=== PATIENT | male | born 1965 | race Caucasian/White ===

== ENCOUNTER 2020-02-24 01:39 | Inpatient (IN) ==
[2020-02-24 01:52] VITALS: BMI 29.0
--- NOTE | 2020-02-24 02:05 | DR.GENAD ---
HPI - PCP Primary Care Physician: RADHA - Complaint/Symptoms Chief Complaint Doctors Comments: Patient is compaining of vomiting for the past nine days and being unable to keep anything down during this period with dry mouth, chest pain and left sided chest pain with neck pain and headache initially but is not having neck or headache presently. States he is just "sick and weak" and can't keep anything down and is having mainly stomach cramping and sore throat. States he has been urinating a lot but denies dysuria or hematuria. His bowels usually moves about every 2-3 days but has been slow recently. States he has been battling this for about two weeks and plan to go see his doctor Tuesday but could not wait any longer because he thought he was dehydrated and can't keeep anything down. States he has been drinking water but the water taste funny. He denies tobacco, acohol or drug usage. States he is unsure if he has been around anyone with the COVID virus. States he woke up with chills and feeling weak. He denies cold or cough. Chief Complaint:: PATIENT STATES SINCE TUESDAY HE HAS HAD DRY MOUTH, BODY ACHES, THROWING UP, CHEST DISCOMFORT, AND THE TOP OF HEAD HURTING WITH NO RELIEF, PT IN NO DISTRESS IN TRIAGE. Self Treatment fo Chief Complaint: HOME MEDICATIONS - COVID-19 Coronavirus risk:travel/contact w/high risk person: Yes Has patient experienced Coronavirus symptoms: Yes Coronavirus symptoms experienced: Fever - Nurses notes reviewed Nurses Notes Review: Yes - Source History Provided: Patient - Mode of Arrival Mode of Arrival: Ambulatory - Timing Onset of Chief Complaint: 02/17/20 Came on: Gradually - Duration Duration: Constant How lon Duration: Days - Location Location: chest discomfort. - Severity Severity: Moderate - Modifying Factors Worsens:: nothing Improves:: nothing PMH - PMH Past Medical History: Yes Past Medical History: Hypertension Past Surgical History: Yes Surgical History: Ortho Surgery Past Surgical History Comment: RIGHT ARM. LEFT HAND (FINGERS). NECK - Family History History of Family Medical Conditions: No - Social History Does patient currently use any type of tobacco product: No Have you used tobacco products in the last 12 months: No Type of Tobacco Use: None Does any household member use tobacco: No Alcohol Use: None Do you use any recreational Drugs:: No Lives With: Family Lives Where: Home - infectious screening In the last 2 months have you had wt loss of >10#?: NO Have you had fever, night sweats or hemotysis?: No Have you traveled outside the country in the last 6 months?: No Isolation: Standard ROS - Review of Systems Constitutional: No Symptoms Reported, Chills, Fever, Weakness, Loss of Appetite Eyes: No Symptoms Reported. negative: See HPI, Eye Pain, Blurred Vision, Tearing, Discharge, Photophobia, Diplopia, Other ENTM: No Symptoms Reported Respiratoy: No Symptoms Reported. negative: See HPI, Productive Cough, Non- Productive Cough, Moist Cough, Dry Cough, Hacking Cough, Barking Cough, Brassy Cough, Orthopnea, Short of Breath, Stridor, Wheezing, Hemoptysis, Other Cardiovascular: No Symptoms Reported, Chest Pain. negative: See HPI, Edema, Palpitations, Syncope, Cyanosis, Skin Mottling, Other Gastrointestinal/Abdominal: No Symptoms Reported, Abdominal Pain, Constipation, Nausea, Vomiting, Food Intolerance Genitourinary: No Symptoms Reported, Frequency Neurological: No Symptoms Reported, Weakness. negative: See HPI, Anxiety, Depressed, Emotional Problems, Headache, Numbness, Paresthesia, Pre-existing Deficit, Seizure, Tingling, Tremors, Dizziness, Problems Walking, Speech Problem, Other Musculoskeletal: No Symptoms Reported Integumentary: No Symptoms Reported. negative: See HPI, Change in Color, Change in Hair/Nails, Dryness, Lesions, Lumps, Rash, Itching, Wound, Bruises, Juandice, Other Hematologic/Lymphatic: No Symptoms Reported Endocrine: No Symptoms Reported, Increased Thirst, Increased Urine, Decreased Appetite. negative: See HPI, Excessive Sweating, Flushing, Intolerance to Cold, Intolerance to Heat, Increased Hunger, Unexplained Weight Gain, Unexplained Weight Loss, Failure to Thrive, Other Psychiatric: No Symptoms Reported. negative: See HPI, Anxiety, Depression, Hallucinations, Excessive crying, Suicidal, Other PE - General Limitations: No Limitations General Appearance: Alert, In Distress (moderate) - Head Head Exam: Normal Inspection, Atraumatic, Normocephalic - Eyes Eye exam: Normal Appearance, PERRL, EOMI. negative: Scleral Icterus, Conjunctival Injection, Nystagmus, Miosis, Mydrasis, Periorbital Swelling, P eriorbital Tenderness, Other - ENT ENT Exam: Normal Exam, Normal Oropharynx, Normal External Ear Exam, Mucous Membranes Moist, TM's Normal Bilaterally External Ear Exam: Normal External Inspection TM/Canal Exam: Bilateral Normal Nose Exam: Normal Nose Exam Mouth Exam: Normal Inspection. negative: Drooling, Trismus, Lip Swelling, Tongue Elevation, Tongue Swelling, Laceration, Other Throat Exam: Normal Inspection, Tonsillar Erythema. negative: Tonsillomegaly, Tonsillar Exudate, R Peritonsillar Mass, L Peritonsillar Mass, Muffled Voice, Other - Neck Neck Exam: Normal Inspection, Full ROM, Trachea Midline. negative: Tenderness, Meningismus, Lymphadenopathy, Thyromegaly, Other - Chest Chest Inspection: Normal Inspection, Symmetric Chest Wall Rise. negative: Tenderness, Rash, Abscess, Other - Respiratory Respiratory Exam: Normal Lung Sounds Bilat. negative: Accessory Muscle Use, Chest Wall Tenderness, Prolonged Expiratory Phase, Respiratory Distress, Stridor, Other Respiratory Exam: Bilateral Clear to Auscultation - Cardiovascular Cardiovascular Exam: Regular Rate, Normal Rhythm, Normal Heart Sounds. negative: Bradycardia, Tachycardia, Irregular Rhythm, Systolic Murmur, Diastolic Murmur, Rubs, Gallop, Clicks, JVD, +S1, +S2, +S3, +S4, Other - Abdominal Exam Abdominal Exam: Normal Inspection, Normal Bowel Sounds, Soft, Distention, Tenderness, Guarding, Hyperactive Bowel Sounds. negative: Rebound, Rigidity, Dimnished Bowel Sounds, Hypoactive Bowel Sounds, Organomegaly, Trauma, Incision, Ascites, Mass, Bruit, Pulsatile Mass, Hernia, Other Abdominal Tenderness: Epigastrium, Suprapubic, Mild. negative: RUQ, RLQ, LUQ, LLQ, Diffuse, Moderate, Severe, Other - Extremities Extremities Exam: Normal Inspection, Full ROM, Normal Capillary Refill. negative: Tenderness, Edema, Joint Swelling, Calf Tenderness, Other - Back Back Exam: Normal Inspection, Full ROM. negative: Tenderness, (R) CVA Tenderness, (L) CVA Tenderness, Muscle Spasm, Paraspinal Tenderness, Vertebral Tenderness, Rashes, (R) Sciatic Notch Tenderness, (L) Sciatic Notch Tendern, (R) Straight Leg Raise, (L) Straight Leg Raise, Other - Neurologic Neurological Exam: Alert, Oriented X3, CN II-XII Intact, Reflexes Normal. negative: Normal Gait (not tested) - Psychiatric Psychiatric Exam: Normal Affect, Normal Mood. negative: Depressed, Agitated, Anxious, Flat Affect, Manic, Homicidal Ideation, Suicidal Ideation, Other - Skin Skin Exam: Warm, Dry, Intact, Normal Color. negative: Rash, Cyanosis, Diapho resis, Erythema, Pallor, Mottled, Other - Vital Signs Vitals: Temperature 97.6 F Pulse Rate 93 Respiratory Rate 18 Blood Pressure 116/75 O2 Sat by Pulse Oximetry 91 Course - Reevaluation 1st: Improved - Consultation Called: 05:45 Call Returned: 05:45 (Dr. Panda to admit) - Education/Counseling Education/Counseling: Patient Educated On: Treatment, Diagnosis, Needs for Follow Up ROR - Labs Reviewed Laboratory Results Reviewed?: Yes (All labs and x-ray results reviewed and discussed with patient) Result Diagrams: 02/24/20 02:30 02/24/20 02:30 - XRAY XRAY Interpreted by: Radiologist (CXR: No focal consolidation seen. Normal heart size.) - EKG Rate: 77 [place]: Normal Rhythm: NSR Block: None Hypertrophy: None ST: Normal - Labs Reviewed Laboratory: WBC 1.9 X10^3/uL (3.6-10.0) L* 02/24/20 02:30 RBC 5.20 X10^6/uL (4.7-6.0) 02/24/20 02:30 Hgb 17.2 g/dL (13.5-18.0) 02/24/20 02:30 Hct 48.5 % (42.0-54.0) 02/24/20 02:30 MCV 93.4 fL (80.0-100.0) 02/24/20 02:30 MCH 33.1 pg (27.0-34.0) 02/24/20 02:30 MCHC 35.4 g/dL (33.0-35.0) H 02/24/20 02:30 RDW 13.3 % (11.6-16.5) 02/24/20 02:30 Plt Count 73 X10^3/uL (150.0-450.0) L 02/24/20 02:30 Plt Count Comment Decreased (ADEQUATE) 02/24/20 02:30 MPV 8.0 fL (7.4-11.0) 02/24/20 02:30 Neut % (Auto) 58.9 % (42.0-75.0) 02/24/20 02:30 Lymph % (Auto) 27.5 % (21.0-51.0) 02/24/20 02:30 [place] % (Auto) 13.3 % (0.0-13.0) H 02/24/20 02:30 Eos % (Auto) 0.0 % (0.9-2.9) L 02/24/20 02:30 Baso % (Auto) 0.3 % (0.2-1.0) 02/24/20 02:30 Neut # (Auto) 1.1 x10^3/uL (2.2-4.8) L 02/24/20 02:30 Lymph # (Auto) 0.5 X10^3/uL (1.3-2.9) L 02/24/20 02:30 [place] # (Auto) 0.2 x10^3/uL (0.3-0.8) L 02/24/20 02:30 Eos # (Auto) 0.0 x10^3/uL (0.0-0.2) 02/24/20 02:30 Baso # (Auto) 0.0 X10^3/uL (0.0-0.1) 02/24/20 02:30 Absolute Nucleated RBC 0.2 /100WBC 02/24/20 02:30 Total Counted 50 02/24/20 02:30 Neutrophils % (Manual) 54 % (39-76) 02/24/20 02:30 Band Neutrophils % 6 % (0-10) 02/24/20 02:30 Lymphocytes % (Manual) 30 % (13-43) 02/24/20 02:30 Monocytes % (Manual) 10 % (4-9) H 02/24/20 02:30 Plt Morphology Comment Normal (NORMAL) 02/24/20 02:30 RBC Morphology Normal (NORMAL) 02/24/20 02:30 PT 12.5 SECONDS (11.8-14.3) 02/24/20 02:30 INR Target Range - 02/24/20 02:30 INR 0.96 (0.8-1.3) 02/24/20 02:30 APTT 37.2 SECONDS (22.9-36.5) H 02/24/20 02:30 PTT Comment - 02/24/20 02:30 D-Dimer 414 ng/mL (0-400) H* 02/24/20 02:30 Sodium 135 mmol/L (136-145) L 02/24/20 02:30 Corrected Sodium 136 mmol/L (136-145) 02/24/20 02:30 Potassium 4.0 mmol/L (3.5-5.1) 02/24/20 02:30 Chloride 98 mmol/L (98-107) 02/24/20 02:30 Carbon Dioxide 29.8 mmol/L (21-32) 02/24/20 02:30 BUN 18 mg/dL (7-18) 02/24/20 02:30 Creatinine 1.38 mg/dL (0.70-1.30) H 02/24/20 02:30 Est GFR (MDRD) Af Amer > 60 (>60) 02/24/20 02:30 Est GFR (MDRD) Non-Af 57 (>60) L 02/24/20 02:30 Glucose 124 mg/dL (65-99) H 02/24/20 02:30 Lactic Acid 1.0 mmol/L (0.4-2.0) 02/24/20 03:55 Calcium 8.4 mg/dL (8.5-10.1) L 02/24/20 02:30 Corrected Calcium TNP 02/24/20 02:30 Magnesium 1.6 mg/dL (1.7-2.9) L 02/24/20 02:30 Total Bilirubin 0.50 mg/dL (0.2-1.0) 02/24/20 02:30 AST 76 Units/L (15-37) H 02/24/20 02:30 ALT 79 Units/L (12-78) H 02/24/20 02:30 Alkaline Phosphatase 70 Units/L (46-116) 02/24/20 02:30 Creatine Kinase 220 Units/L (39-308) 02/24/20 02:30 CK-MB (CK-2) < 1.0 ng/mL (0-4.0) 02/24/20 02:30 CK/CKMB % Calc 0.5 % (<4) 02/24/20 02:30 Troponin I < 0.02 ng/mL (0-1.5) 02/24/20 02:30 Total Protein 7.7 g/dL (6.4-8.2) 02/24/20 02:30 Albumin 3.7 g/dL (3.4-5.0) 02/24/20 02:30 Globulin 4.0 g/dL (2.5-4.5) 02/24/20 02:30 Albumin/Globulin Ratio 0.9 Ratio (1.1-2.1) L 02/24/20 02:30 Amylase 36 Units/L (25-115) 02/24/20 02:30 Lipase 97 Units/L (73-393) 02/24/20 02:30 Specimen Type Clean catch urine 02/24/20 03:51 Urine Color [place] (YELLOW) 02/24/20 03:51 Urine Appearance Clear (CLEAR) 02/24/20 03:51 Urine pH 5.0 (5.0 - 8.0) 02/24/20 03:51 Ur Specific [place] 1.025 (1.000-1.030) 02/24/20 03:51 Urine Protein 3+ (NEGATIVE) 02/24/20 03:51 Urine Glucose (UA) Negative (NEGATIVE) 02/24/20 03:51 Urine Ketones 3+ (NEGATIVE) 02/24/20 03:51 Urine Occult Blood 1+ (NEGATIVE) 02/24/20 03:51 Urine Nitrite Negative (NEGATIVE) 02/24/20 03:51 Urine Bilirubin 1+ (NEGATIVE) 02/24/20 03:51 Urine Urobilinogen 2+ (NORMAL) 02/24/20 03:51 Ur Leukocyte Esterase Negative (NEGATIVE) 02/24/20 03:51 Urine RBC 0-2 /HPF (0-3) 02/24/20 03:51 Urine WBC None seen /HPF (0-5) 02/24/20 03:51 Ur Squamous Epith Cells Rare /HPF (NEGATIVE) 02/24/20 03:51 Urine Bacteria Negative /HPF (NEGATIVE) 02/24/20 03:51 Urine Mucus Few /HPF (NEGATIVE) 02/24/20 03:51 Ur Culture Indicated? No/not indicated 02/24/20 03:51 Urine Opiates Screen Positive (NEG=<300) 02/24/20 03:51 Urine Methadone Screen Negative (NEG=<300) 02/24/20 03:51 Ur Barbiturates Screen Negative (NEG=<200) 02/24/20 03:51 Ur Phencyclidine Scrn Negative (NEG=<25) 02/24/20 03:51 Ur Amphetamines Screen Negative (NEG=<1000) 02/24/20 03:51 U Benzodiazepines Scrn Negative (NEG=<200) 02/24/20 03:51 Urine Cocaine Screen Negative (NEG=<300) 02/24/20 03:51 U Marijuana (THC) Screen Negative (NEG=<50) 02/24/20 03:51 SARS-CoV-2 (PCR) Positive (NEGATIVE) A 02/24/20 04:35 S. pyogenes (TEM-PCR) Not detected (NOT DETECT) 02/24/20 02:36 - XRAY Xray Findings: CT abdomen and pelvis: No evidence of stones or signs of obstructive uropathy. No CT evidence of diverticulitis. Appendix is normal. Lungs with dependent atelectatic changes. (PREETI SABILLON) Opioid - Opioid Risk Tool Total: 0 Total Score Risk Category: Low Risk - Diagnosis Discharge Problem: Chest pain in adult, Persistent vomiting in adult patient, Thrombocytopenia, Colonic diverticulum, Dehydration, COVID-19 virus infection Neutropenia Qualifiers: Neutropenia type: unspecified Qualified Code(s): D70.9 - Neutropenia, unspecified Chronic kidney disease (CKD) Qualifiers: Chronic kidney disease stage: stage 3 (moderate) Qualified Code(s): N18.3 - Chronic kidney disease, stage 3 (moderate) Pharyngitis Qualifiers: Pharyngitis/tonsillitis etiology: unspecified etiology Qualified Code(s): J02.9 - Acute pharyngitis, unspecified - Discharge Plan Disposition: ADMITTED INPATIENT Condition: Stable - Follow ups/Referrals Follow ups/Referrals: JOS ARAMBULA [Primary Care Provider] - 3 days - Instructions
[2020-02-24] MEDS ORDERED: ZOFRAN INJ 4 MG VIAL IVP ONE (02:18)
[2020-02-24] MEDS ORDERED: TORADOL 30 MG VIAL IVP ONE (02:18)
[2020-02-24] MEDS ORDERED: TORADOL 30 MG VIAL ONE (02:26)
[2020-02-24] MEDS ORDERED: NS 1000 ML 1,000 ML ONE (02:26)
[2020-02-24] MEDS ORDERED: ZOFRAN INJ 4 MG VIAL ONE (02:26)
[2020-02-24 02:40] LABS: BASOPHILS % (AUTO) 0.3 % (0.2-1.0); HEMATOCRIT 48.5 % (42.0-54.0); HEMOGLOBIN 17.2 g/dL (13.5-18.0); LYMPHOCYTES # (AUTO) 0.5 X10^3/uL (1.3-2.9); LYMPHOCYTES % (AUTO) 27.5 % (21.0-51.0); MEAN CORPUSCULAR HEMOGLOBIN 33.1 pg (27.0-34.0); MEAN CORPUSCULAR HGB CONC 35.4 g/dL (33.0-35.0); MEAN CORPUSCULAR VOLUME 93.4 fL (80.0-100.0); MONOCYTES # (AUTO) 0.2 x10^3/uL (0.3-0.8); MONOCYTES % (AUTO) 13.3 % (0.0-13.0); NEUTROPHILS # (AUTO) 1.1 x10^3/uL (2.2-4.8); NEUTROPHILS % (AUTO) 58.9 % (42.0-75.0); PLATELET COUNT 73 X10^3/uL (150.0-450.0); RED CELL DISTRIBUTION WIDTH 13.3 % (11.6-16.5)
[2020-02-24 02:53] LABS: BAND NEUTROPHILS % 6 % (0-10); WHITE BLOOD COUNT 1.9 X10^3/uL (3.6-10.0)
[2020-02-24 02:54] LABS: PLATELET MORPHOLOGY COMMENT NORMAL (NORMAL)
[2020-02-24 02:57] LABS: BLOOD UREA NITROGEN 18 mg/dL (7-18); CALCIUM 8.4 mg/dL (8.5-10.1); CARBON DIOXIDE 29.8 mmol/L (21-32); CHLORIDE 98 mmol/L (98-107); COR NA(FOR HYPERGLY) 136 mmol/L (136-145); CREATININE 1.38 mg/dL (0.70-1.30); SODIUM 135 mmol/L (136-145); TROPONIN I < 0.02 ng/mL (0-1.5); eGFR NON BLACK RACES 57 (>60)
[2020-02-24 03:00] LABS: ALANINE AMINOTRANSFERASE 79 Units/L (12-78); ALBUMIN 3.7 g/dL (3.4-5.0); ALKALINE PHOSPHATASE 70 Units/L (46-116); AMYLASE 36 Units/L (25-115); ASPARTATE AMINO TRANSFERASE 76 Units/L (15-37); CKMB % 0.5 % (<4); CREATINE KINASE 220 Units/L (39-308); CREATINE KINASE MB < 1.0 ng/mL (0-4.0); LIPASE 97 Units/L (73-393); MAGNESIUM 1.6 mg/dL (1.7-2.9); TOTAL PROTEIN 7.7 g/dL (6.4-8.2)
[2020-02-24] MEDS ORDERED: NS 1000 ML 1,000 ML IV SCH (03:00)
[2020-02-24] MEDS ORDERED: NS 100 ML IV 100 ML IV ONE ×2 (03:28→04:33)
--- NOTE | 2020-02-24 03:33 | CT ---
STUDY: CT ABDOMEN AND PELVIS WITHOUT IV CONTRASTCOMPARISON: NoneTECHNIQUE: Axial images were obtained of the abdomen and pelvis without IV contrast. Sagittal and coronal reformatted images were provided. All images were reviewed in a variety of windows and levels.RADIATION REDUCTION TECHNIQUE: Automated exposure control, adjustment of the mA or kV according to patient size, or iterative reconstruction techniques were used.HISTORY: ABD PAINFINDINGS:Please note that lack of IV contrast does limit evaluation of the soft tissues and vascular detail.The visualized lower lung zones demonstrates dependent atelectatic changes with scar-like changes.. The heart size is normal.The liver, gallbladder, spleen, pancreas, adrenal glands, and kidneys are grossly unremarkable.There is no evidence of stones or signs of obstructive uropathy.The stomach, small bowel, and colon are grossly unremarkable. A few scattered diverticula are seen without evidence of diverticulitis. There are no inflammatory changes in the right lower quadrant to suggest secondary signs of acute appendicitis. The appendix is normal.There is no evidence of retroperitoneal or mesenteric lymphadenopathy.The visualized bones demonstrate degenerative changes. There are no concerning lytic or blastic lesions identified.IMPRESSION:1. No evidence of stones or signs of obstructive uropathy2. No CT evidence of diverticulitis3. The appendix is normalElectronically signed by: Jonathan Lieberman (Feb 24, 2020 03:31:59)
--- NOTE | 2020-02-24 03:34 | RAD ---
STUDY: FRONTAL VIEW CHESTCOMPARISON: NoneHISTORY: CHEST PAINFINDINGS:Subsegmental atelectasis is noted.No focal consolidation is seen.The heart size is within normal limits.The mediastinum is unremarkable.There is no evidence of pleural effusion or gross pneumothorax.The trachea is midline.IMPRESSION:1. No focal consolidation is seen.2. The heart size is normal.Electronically signed by: Jonathan Lieberman (Feb 24, 2020 03:33:15)
[2020-02-24] MEDS ORDERED: ROCEPHIN VIAL 1 GRAM 1 G in NS 100 ML IV + SPIKE MINIBAG* 100 ML IV ONE (04:10)
[2020-02-24 04:23] LABS: BILIRUBIN,URINE 1+ (NEGATIVE); BLOOD/HEMOGLOBIN,URINE 1+ (NEGATIVE); GLUCOSE, URINE NEGATIVE (NEGATIVE); KETONES,URINE 3+ (NEGATIVE); LEUKOCYTE ESTERASE ,URINE NEGATIVE (NEGATIVE); NITRITES,URINE NEGATIVE (NEGATIVE); PROTEIN,URINE 3+ (NEGATIVE); UROBILINOGEN,URINE 2+ (NORMAL)
--- NOTE | 2020-02-24 04:26 | CT ---
STUDY: CTA CHEST WITH IV CONTRASTCOMPARISON: NoneTECHNIQUE: axial images were acquired of the chest with IV contrast for a CT angiogram. Coronal and sagittal images were provided. All images were reviewed in a variety of windows and levels. 3D 8 mm thick MIPS images were provided.RADIATION REDUCTION TECHNIQUE: Automated exposure control, Adjustment of the mA and/or kV according to patient size, or iterative reconstruction techniques were used. 8 mm thick axial MIPS images were provided.HISTORY: ELEVATED D-DIMERFINDINGS:CHEST:THYROID GLANDS: The thyroid gland is unremarkable.HEART AND VESSELS: The heart size is within normal limits.There is no evidence of pericardial effusion. Thoracic aorta is normal size without evidence of an aneurysm or dissection.Main pulmonary artery size is within normal limits. There are no filling defect seen within the visualized pulmonary arteries to suggest a pulmonary embolism.LYMPH NODES: There is no evidence of axillary, mediastinal, or hilar lymphadenopathy.AIRWAY: The trachea and mainstem bronchi are patent.No intraluminal lesions are seen.LUNGS: Scattered areas of ground-glass opacities are seen throughout the right and left lung predominantly involving the subpleural surface and fissures. There is no pleural effusion or pneumothorax.ESOPHAGUS: The esophagus is grossly unremarkable.BONES: The visualized bones demonstrate degenerative changes. There are no concerning lytic or blastic lesions identified.UPPER ABDOMINAL STRUCTURES: The visualized upper abdominal structures are unremarkable.IMPRESSSION:1. No evidence of pulmonary embolism, thoracic aortic aneurysm, or dissection2. Scattered areas of ground-glass opacities throughout the right left lung involving the subpleural surface in fissures are noted. The above findings demonstrate COMMON CT imaging features of COVID-19 pneumonia. However, differential diagnosis should include, but is not limited to, influenza pneumonia, organizing pneumonia, or possible drug toxicity. Clinical correlation with laboratory viral testing may be obtained as clinically indicated. Reference: Gordy et al. Radiology. . Heart size is normal and there is no evidence of pericardial effusionElectronically signed by: Jonathan Lieberman (Feb 24, 2020 04:25:07)
[2020-02-24] MEDS ORDERED: ROCEPHIN VIAL 1 GRAM ONE (04:33)
[2020-02-24 04:35] LABS: APPEARANCE,URINE CLEAR (CLEAR); BACTERIA,URINE NEGATIVE /HPF (NEGATIVE); COLOR,URINE AMBER (YELLOW); MUCUS,URINE FEW /HPF (NEGATIVE); RBC,URINE 0-2 /HPF (0-3); SQUAMOUS EPITHELIAL CELL,UR RARE /HPF (NEGATIVE)
[2020-02-24] MEDS ORDERED: ASCORBIC ACID INJ MULTI-DOSE VIAL IM SCH (06:00)
[2020-02-24] MEDS ORDERED: ZOFRAN INJ 4 MG VIAL IVP PRN (06:01)
[2020-02-24] MEDS ORDERED: D5 1/2 NS + KCL 20 MEQ/L 1,000 ML IV SCH (07:00)
[2020-02-24] MEDS ORDERED: VENTOLIN or PROAIR HFA ONE (08:47)
[2020-02-24] MEDS ORDERED: THIAMINE HCL INJ IM SCH (09:00)
[2020-02-24] MEDS ORDERED: CORTEF PO SCH (09:00)
[2020-02-24] MEDS: VENTOLIN or PROAIR HFA IN PRN ×4 (09:00→21:58)
[2020-02-24] MEDS ORDERED: CORTEF ONE (09:18)
[2020-02-24] MEDS ORDERED: MORPHINE SULFATE INJ 4 MG IVP ONE (09:58)
[2020-02-24] MEDS ORDERED: MORPHINE SULFATE INJ 4 MG ONE (10:03)
--- NOTE | 2020-02-24 10:05 | DR.H&P ---
H&P History & Physical for Day of: H&P Date: 02/24/20 Chief Complaint Chief Complaint: Nausea, vomiting, shortness of breath Allergies Allergies Allergy/AdvReac Type Severity Reaction Status Date / Time No Known Drug Allergies Allergy Verified 02/24/20 01:47 History of Present Illness History of Present Illness: Pt is a 54 yo m admitted for COVID-19 pneumonia(pos itive 02/24/20), Dehydration. He presenting with intractable vomiting and abdominal pain for the past 9 days. He reports having difficulty keeping anything down, associated sx of dry mouth, shortness of breath, chest pain. He reports feeling "sick and weak" with sore throat and cough. Labs imaging: Wbc 1.9, Hgb 17.2, Plt 73, Na 136, K 4, Cr 1.38, Gluc 124, D-dimer 414, CTAP negative, CTA negative for pulmonary embolus but commented on scattered areas of ground glass opacities c/w COVID-19. Pt was started on IVF NS@75ml/h, Azithromycin, IV Zofran prn, albuterol inh prn, I/S. On exam his concern a ppeared to primarily be pain with his back and lower legs that is chronic. He had an O2sat of >90% on RA and did not require any supplemental oxygen. Will continue supportive treatments and follow up labs in the morning. Past Medical History Past Medical History: Hypertension Past Surgical History Surgical History: Ortho Surgery Family History Family Medical History: Cancer Social History Does patient currently use any type of tobacco product: No Have you used tobacco products in the last 12 months: No Type of Tobacco Use: None Does any household member use tobacco: No Alcohol Use: None Medications Home Medications: No Known Drug Allergies Allergy (Verified 02/24/20 01:47) CONTINUE taking the following medications NK 02/24/20 [History] Labs Result Diagrams: 02/24/20 02:30 02/24/20 02:30 Labs: Laboratory WBC 1.9 X10^3/uL (3.6-10.0) L* 02/24/20 02:30 RBC 5.20 X10^6/uL (4.7-6.0) 02/24/20 02:30 Hgb 17.2 g/dL (13.5-18.0) 02/24/20 02:30 Hct 48.5 % (42.0-54.0) 02/24/20 02:30 MCV 93.4 fL (80.0-100.0) 02/24/20 02:30 MCH 33.1 pg (27.0-34.0) 02/24/20 02:30 MCHC 35.4 g/dL (33.0-35.0) H 02/24/20 02:30 RDW 13.3 % (11.6-16.5) 02/24/20 02:30 Plt Count 73 X10^3/uL (150.0-450.0) L 02/24/20 02:30 Plt Count Comment Decreased (ADEQUATE) 02/24/20 02:30 MPV 8.0 fL (7.4-11.0) 02/24/20 02:30 Neut % (Auto) 58.9 % (42.0-75.0) 02/24/20 02:30 Lymph % (Auto) 27.5 % (21.0-51.0) 02/24/20 02:30 [place] % (Auto) 13.3 % (0.0-13.0) H 02/24/20 02:30 Eos % (Auto) 0.0 % (0.9-2.9) L 02/24/20 02:30 Baso % (Auto) 0.3 % (0.2-1.0) 02/24/20 02:30 Neut # (Auto) 1.1 x10^3/uL (2.2-4.8) L 02/24/20 02:30 Lymph # (Auto) 0.5 X10^3/uL (1.3-2.9) L 02/24/20 02:30 [place] # (Auto) 0.2 x10^3/uL (0.3-0.8) L 02/24/20 02:30 Eos # (Auto) 0.0 x10^3/uL (0.0-0.2) 02/24/20 02:30 Baso # (Auto) 0.0 X10^3/uL (0.0-0.1) 02/24/20 02:30 Absolute Nucleated RBC 0.2 /100WBC 02/24/20 02:30 Total Counted 50 02/24/20 02:30 Neutrophils % (Manual) 54 % (39-76) 02/24/20 02:30 Band Neutrophils % 6 % (0-10) 02/24/20 02:30 Lymphocytes % (Manual) 30 % (13-43) 02/24/20 02:30 Monocytes % (Manual) 10 % (4-9) H 02/24/20 02:30 Plt Morphology Comment Normal (NORMAL) 02/24/20 02:30 RBC Morphology Normal (NORMAL) 02/24/20 02:30 PT 12.5 SECONDS (11.8-14.3) 02/24/20 02:30 INR Target Range - 02/24/20 02:30 INR 0.96 (0.8-1.3) 02/24/20 02:30 APTT 37.2 SECONDS (22.9-36.5) H 02/24/20 02:30 PTT Comment - 02/24/20 02:30 D-Dimer 414 ng/mL (0-400) H* 02/24/20 02:30 Sodium 135 mmol/L (136-145) L 02/24/20 02:30 Corrected Sodium 136 mmol/L (136-145) 02/24/20 02:30 Potassium 4.0 mmol/L (3.5-5.1) 02/24/20 02:30 Chloride 98 mmol/L (98-107) 02/24/20 02:30 Carbon Dioxide 29.8 mmol/L (21-32) 02/24/20 02:30 BUN 18 mg/dL (7-18) 02/24/20 02:30 Creatinine 1.38 mg/dL (0.70-1.30) H 02/24/20 02:30 Est GFR (MDRD) Af Amer > 60 (>60) 02/24/20 02:30 Est GFR (MDRD) Non-Af 57 (>60) L 02/24/20 02:30 Glucose 124 mg/dL (65-99) H 02/24/20 02:30 Lactic Acid 1.0 mmol/L (0.4-2.0) 02/24/20 03:55 Calcium 8.4 mg/dL (8.5-10.1) L 02/24/20 02:30 Corrected Calcium TNP 02/24/20 02:30 Magnesium 1.6 mg/dL (1.7-2.9) L 02/24/20 02:30 Total Bilirubin 0.50 mg/dL (0.2-1.0) 02/24/20 02:30 AST 76 Units/L (15-37) H 02/24/20 02:30 ALT 79 Units/L (12-78) H 02/24/20 02:30 Alkaline Phosphatase 70 Units/L (46-116) 02/24/20 02:30 Creatine Kinase 220 Units/L (39-308) 02/24/20 02:30 CK-MB (CK-2) < 1.0 ng/mL (0-4.0) 02/24/20 02:30 CK/CKMB % Calc 0.5 % (<4) 02/24/20 02:30 Troponin I < 0.02 ng/mL (0-1.5) 02/24/20 02:30 Total Protein 7.7 g/dL (6.4-8.2) 02/24/20 02:30 Albumin 3.7 g/dL (3.4-5.0) 02/24/20 02:30 Globulin 4.0 g/dL (2.5-4.5) 02/24/20 02:30 Albumin/Globulin Ratio 0.9 Ratio (1.1-2.1) L 02/24/20 02:30 Amylase 36 Units/L (25-115) 02/24/20 02:30 Lipase 97 Units/L (73-393) 02/24/20 02:30 Specimen Type Clean catch urine 02/24/20 03:51 Urine Color [place] (YELLOW) 02/24/20 03:51 Urine Appearance Clear (CLEAR) 02/24/20 03:51 Urine pH 5.0 (5.0 - 8.0) 02/24/20 03:51 Ur Specific [place] 1.025 (1.000-1.030) 02/24/20 03:51 Urine Protein 3+ (NEGATIVE) 02/24/20 03:51 Urine Glucose (UA) Negative (NEGATIVE) 02/24/20 03:51 Urine Ketones 3+ (NEGATIVE) 02/24/20 03:51 Urine Occult Blood 1+ (NEGATIVE) 02/24/20 03:51 Urine Nitrite Negative (NEGATIVE) 02/24/20 03:51 Urine Bilirubin 1+ (NEGATIVE) 02/24/20 03:51 Urine Urobilinogen 2+ (NORMAL) 02/24/20 03:51 Ur Leukocyte Esterase Negative (NEGATIVE) 02/24/20 03:51 Urine RBC 0-2 /HPF (0-3) 02/24/20 03:51 Urine WBC None seen /HPF (0-5) 02/24/20 03:51 Ur Squamous Epith Cells Rare /HPF (NEGATIVE) 02/24/20 03:51 Urine Bacteria Negative /HPF (NEGATIVE) 02/24/20 03:51 Urine Mucus Few /HPF (NEGATIVE) 02/24/20 03:51 Ur Culture Indicated? No/not indicated 02/24/20 03:51 Urine Opiates Screen Positive (NEG=<300) 02/24/20 03:51 Urine Methadone Screen Negative (NEG=<300) 02/24/20 03:51 Ur Barbiturates Screen Negative (NEG=<200) 02/24/20 03:51 Ur Phencyclidine Scrn Negative (NEG=<25) 02/24/20 03:51 Ur Amphetamines Screen Negative (NEG=<1000) 02/24/20 03:51 U Benzodiazepines Scrn Negative (NEG=<200) 02/24/20 03:51 Urine Cocaine Screen Negative (NEG=<300) 02/24/20 03:51 U Marijuana (THC) Screen Negative (NEG=<50) 02/24/20 03:51 SARS-CoV-2 (PCR) Positive (NEGATIVE) A 02/24/20 04:35 S. pyogenes (TEM-PCR) Not detected (NOT DETECT) 02/24/20 02:36 Review of Systems Constitutional: Weakness; denies Fever and Chills Eyes: No Symptoms Reported ENT: No Symptoms Reported Respiratory: Cough, Shortness of Breath and Pleuritic Pain Cardiovascular: No Symptoms Reported Gastrointestinal: Nausea, Vomiting and Abdominal Pain Genitourinary: No Symptoms Reported Musculoskeletal: Back Pain and Leg Pain Skin: No Symptoms Reported Neurological: No Symptoms Reported Physical Exam Vital Signs: Temperature 98.3 F Pulse Rate [Right Brachial] 88 Pulse Rate 93 Respiratory Rate 20 Blood Pressure [Right Arm] 152/97 Blood Pressure 116/75 O2 Sat by Pulse Oximetry 94 Oriented: Normal Eyes: Normal Ear: Normal Nose: Normal Throat: Red Respiratory: Diminished Throughout : Normal Auscultation: Bowel Sounds: Normal Palpation: Normal Tenderness: Normal Skin: Normal Musculoskeletal: Normal Psychiatric: Normal Speech Pattern: Clear Assessment/Plan (1) COVID-19 virus infection: Status: Acute Plan: Pneumonia protocol (2) Dehydration: Status: Acute Plan: gentle hydration IVF (3) Neutropenia: Qualifiers: Neutropenia type: unspecified Qualified Code(s): D70.9 - Neutropenia, unspecified Status: Acute (4) Thrombocytopenia: Status: Acute Plan: Plt 73, likely d/t underlying infection Will use SCDs Review H&P Reviewed: Yes Patient was examined?: Yes
[2020-02-24] MEDS ORDERED: TESSALON PERLES PO PRN (10:11)
[2020-02-24] MEDS: ZOFRAN INJ 4 MG VIAL IVP PRN ×2 (10:19→20:18)
[2020-02-24] MEDS: NS 1000 ML 1,000 ML IV SCH (10:20)
[2020-02-24] MEDS ORDERED: ZITHROMAX INJ 500 MG VIAL IV ONE (10:38)
[2020-02-24] MEDS ORDERED: NS 250 ML IV 250 ML IV ONE (10:38)
[2020-02-24] MEDS: ZITHROMAX INJ 500 MG VIAL 250 MG in NS 250 ML IV 250 ML IV SCH (10:43)
[2020-02-24] MEDS: NORCO 10/325 TAB PO PRN ×2 (14:20→20:18)
[2020-02-24] MEDS ORDERED: KLONOPIN TAB 0.5 MG PO SCH (21:00)
[2020-02-25] MEDS: NS 1000 ML 1,000 ML IV SCH ×2 (01:58→15:05)
[2020-02-25] MEDS: NORCO 10/325 TAB PO PRN ×4 (02:40→21:18)
[2020-02-25 05:49] LABS: BASOPHILS % (AUTO) 0 % (0.2-1.0); LYMPHOCYTES # (AUTO) 0.6 X10^3/uL (1.3-2.9); LYMPHOCYTES % (AUTO) 24.6 % (21.0-51.0); MEAN CORPUSCULAR HEMOGLOBIN 33.2 pg (27.0-34.0); MEAN CORPUSCULAR HGB CONC 36.1 g/dL (33.0-35.0); MEAN CORPUSCULAR VOLUME 92.1 fL (80.0-100.0); MEAN PLATELET VOLUME 8.5 fL (7.4-11.0); MONOCYTES # (AUTO) 0.3 x10^3/uL (0.3-0.8); MONOCYTES % (AUTO) 12.1 % (0.0-13.0); NEUTROPHILS # (AUTO) 1.5 x10^3/uL (2.2-4.8); NEUTROPHILS % (AUTO) 63.3 % (42.0-75.0); PLATELET COUNT 67 X10^3/uL (150.0-450.0); RED BLOOD COUNT 4.71 X10^6/uL (4.7-6.0); WHITE BLOOD COUNT 2.3 X10^3/uL (3.6-10.0)
[2020-02-25 06:09] LABS: ALANINE AMINOTRANSFERASE 97 Units/L (12-78); ALBUMIN 3.3 g/dL (3.4-5.0); ALKALINE PHOSPHATASE 63 Units/L (46-116); ASPARTATE AMINO TRANSFERASE 106 Units/L (15-37); BLOOD UREA NITROGEN 13 mg/dL (7-18); CARBON DIOXIDE 29.6 mmol/L (21-32); CHLORIDE 99 mmol/L (98-107); COR CA(FOR HYPOALB) 8.6 mg/dL (8.5-10.1); COR NA(FOR HYPERGLY) 138 mmol/L (136-145); CREATININE 1.25 mg/dL (0.70-1.30); SODIUM 137 mmol/L (136-145); TOTAL PROTEIN 6.9 g/dL (6.4-8.2); eGFR NON BLACK RACES > 60 (>60)
[2020-02-25 06:24] LABS: HEMATOCRIT 44.9 % (42.0-54.0); HEMOGLOBIN 15.9 g/dL (13.5-18.0)
[2020-02-25 06:25] LABS: BAND NEUTROPHILS % 2 % (0-10); PLATELET MORPHOLOGY COMMENT NORMAL (NORMAL)
[2020-02-25] MEDS: ZOFRAN INJ 4 MG VIAL IVP PRN ×2 (07:58→15:56)
[2020-02-25] MEDS: ZITHROMAX INJ 500 MG VIAL 250 MG in NS 250 ML IV 250 ML IV SCH (09:15)
[2020-02-25 10:00] LABS: ABG BASE EXCESS 4.3 mmol/L (-2.0-2.0); ABG HCO3 29.2 mmol/L (22-26)
[2020-02-25] MEDS: PEPCID TAB 20 MG PO SCH ×2 (10:04→21:18)
[2020-02-25] MEDS: PROTONIX INJ 40 MG VIAL IVP SCH (10:05)
[2020-02-25] MEDS: VENTOLIN or PROAIR HFA IN PRN (12:00)
[2020-02-25] MEDS: COZAAR PO SCH (14:23)
[2020-02-25] MEDS: KLONOPIN TAB 0.5 MG PO SCH (21:18)
[2020-02-25] MEDS: FLEXERIL TAB 10 MG PO PRN (21:19)
[2020-02-26] MEDS: ZOFRAN INJ 4 MG VIAL IVP PRN ×3 (00:52→15:28)
[2020-02-26] MEDS ORDERED: PHENERGAN INJ 25 MG IM ONE (03:37)
[2020-02-26] MEDS: PHENERGAN INJ 25 MG IM PRN (03:50)
[2020-02-26] MEDS: NS 1000 ML 1,000 ML IV SCH ×3 (03:52→20:00)
[2020-02-26 05:26] LABS: BASOPHILS % (AUTO) 0.5 % (0.2-1.0); HEMATOCRIT 45.3 % (42.0-54.0); LYMPHOCYTES # (AUTO) 0.4 X10^3/uL (1.3-2.9); LYMPHOCYTES % (AUTO) 16.3 % (21.0-51.0); MEAN CORPUSCULAR HEMOGLOBIN 32.7 pg (27.0-34.0); MEAN CORPUSCULAR HGB CONC 35.3 g/dL (33.0-35.0); MEAN CORPUSCULAR VOLUME 92.7 fL (80.0-100.0); MEAN PLATELET VOLUME 8.9 fL (7.4-11.0); MONOCYTES # (AUTO) 0.3 x10^3/uL (0.3-0.8); MONOCYTES % (AUTO) 13.6 % (0.0-13.0); NEUTROPHILS # (AUTO) 1.6 x10^3/uL (2.2-4.8); NEUTROPHILS % (AUTO) 69.6 % (42.0-75.0); PLATELET COUNT 65 X10^3/uL (150.0-450.0); RED BLOOD COUNT 4.89 X10^6/uL (4.7-6.0); WHITE BLOOD COUNT 2.3 X10^3/uL (3.6-10.0)
[2020-02-26 05:45] LABS: ALANINE AMINOTRANSFERASE 96 Units/L (12-78); ALBUMIN 3.3 g/dL (3.4-5.0); ALKALINE PHOSPHATASE 67 Units/L (46-116); ASPARTATE AMINO TRANSFERASE 95 Units/L (15-37); BLOOD UREA NITROGEN 14 mg/dL (7-18); CALCIUM 8.1 mg/dL (8.5-10.1); CARBON DIOXIDE 28.9 mmol/L (21-32); CHLORIDE 99 mmol/L (98-107); COR CA(FOR HYPOALB) 8.7 mg/dL (8.5-10.1); COR NA(FOR HYPERGLY) 136 mmol/L (136-145); CREATININE 1.22 mg/dL (0.70-1.30); MAGNESIUM 1.8 mg/dL (1.7-2.9); SODIUM 135 mmol/L (136-145); TOTAL PROTEIN 6.9 g/dL (6.4-8.2); eGFR NON BLACK RACES > 60 (>60)
[2020-02-26 06:08] LABS: BAND NEUTROPHILS % 1 % (0-10); PLATELET MORPHOLOGY COMMENT NORMAL (NORMAL)
[2020-02-26 06:11] LABS: ERYTHROCYTE SEDIMENTATION RATE 20 MM/HOUR (0-15)
[2020-02-26] MEDS: NORCO 10/325 TAB PO PRN ×4 (06:14→18:27)
[2020-02-26] MEDS: COZAAR PO SCH (08:43)
[2020-02-26] MEDS: PEPCID TAB 20 MG PO SCH ×2 (08:43→21:08)
[2020-02-26] MEDS: PROTONIX INJ 40 MG VIAL IVP SCH (08:44)
[2020-02-26] MEDS: ZITHROMAX INJ 500 MG VIAL 250 MG in NS 250 ML IV 250 ML IV SCH (08:44)
[2020-02-26] MEDS ORDERED: VITAMIN A PO SCH (09:00)
[2020-02-26] MEDS ORDERED: VITAMIN D3 25 mcg (1,000 UNITS) PO SCH (09:00)
--- NOTE | 2020-02-26 09:41 | RAD ---
HISTORYPNEUMONIASTUDYCHEST, 1 [id number]/2020FINDINGSThe trachea is near to the midline. There is poor inspiratory with elevation of the diaphragms and magnification of the mediastinum and the hilar structures. There is no effusions or pneumothorax. There is central congestion. No malika pulmonary edema. No dominant filler radiopacityIMPRESSIONPoor inspiratory effort with bilateral elevation of the diaphragms and magnification of the hilum. Central congestion without malika pulmonary edema.Electronically signed by: Li Rendon (Feb 26, 2020 09:40:49)
[2020-02-26] MEDS: BENTYL CAP 10 MG PO SCH ×3 (14:12→21:05)
[2020-02-26] MEDS: LEVSIN/MAALOX/LIDOC VISC PO SCH ×3 (14:46→21:08)
[2020-02-26] MEDS: NEURONTIN TAB 600 MG PO PRN (14:48)
[2020-02-26] MEDS: KLONOPIN TAB 0.5 MG PO SCH (21:07)
[2020-02-27] MEDS: NORCO 10/325 TAB PO PRN ×4 (04:39→20:56)
[2020-02-27 06:30] LABS: ALANINE AMINOTRANSFERASE 97 Units/L (12-78); ALBUMIN 3.1 g/dL (3.4-5.0); ALKALINE PHOSPHATASE 74 Units/L (46-116); ASPARTATE AMINO TRANSFERASE 89 Units/L (15-37); BLOOD UREA NITROGEN 15 mg/dL (7-18); CALCIUM 8.1 mg/dL (8.5-10.1); CARBON DIOXIDE 29.5 mmol/L (21-32); CHLORIDE 100 mmol/L (98-107); COR CA(FOR HYPOALB) 8.8 mg/dL (8.5-10.1); COR NA(FOR HYPERGLY) 135 mmol/L (136-145); CREATININE 1.24 mg/dL (0.70-1.30); SODIUM 135 mmol/L (136-145); TOTAL PROTEIN 6.9 g/dL (6.4-8.2); eGFR NON BLACK RACES > 60 (>60)
[2020-02-27 06:33] LABS: BASOPHILS % (AUTO) 0.2 % (0.2-1.0); HEMATOCRIT 43.7 % (42.0-54.0); HEMOGLOBIN 15.6 g/dL (13.5-18.0); LYMPHOCYTES # (AUTO) 0.4 X10^3/uL (1.3-2.9); LYMPHOCYTES % (AUTO) 20.7 % (21.0-51.0); MEAN CORPUSCULAR HEMOGLOBIN 33.2 pg (27.0-34.0); MEAN CORPUSCULAR HGB CONC 35.8 g/dL (33.0-35.0); MEAN CORPUSCULAR VOLUME 92.8 fL (80.0-100.0); MEAN PLATELET VOLUME 8.5 fL (7.4-11.0); MONOCYTES # (AUTO) 0.3 x10^3/uL (0.3-0.8); MONOCYTES % (AUTO) 14.9 % (0.0-13.0); NEUTROPHILS # (AUTO) 1.3 x10^3/uL (2.2-4.8); NEUTROPHILS % (AUTO) 64.2 % (42.0-75.0); PLATELET COUNT 72 X10^3/uL (150.0-450.0); RED BLOOD COUNT 4.71 X10^6/uL (4.7-6.0)
[2020-02-27 07:11] LABS: PLATELET MORPHOLOGY COMMENT NORMAL (NORMAL)
[2020-02-27] MEDS ORDERED: FIORICET TAB PO ONE ×2 (08:48→17:37)
[2020-02-27] MEDS: COZAAR PO SCH (09:38)
[2020-02-27] MEDS: PEPCID TAB 20 MG PO SCH ×2 (09:38→20:47)
[2020-02-27] MEDS: PROTONIX INJ 40 MG VIAL IVP SCH (09:38)
[2020-02-27] MEDS: BENTYL CAP 10 MG PO SCH ×4 (09:38→20:47)
[2020-02-27 09:39] LABS: ABG BASE EXCESS 3.2 mmol/L (-2.0-2.0); ABG HCO3 27.9 mmol/L (22-26)
[2020-02-27] MEDS: LEVSIN/MAALOX/LIDOC VISC PO SCH (09:39)
[2020-02-27] MEDS: NS 1000 ML 1,000 ML IV SCH (09:40)
[2020-02-27] MEDS: ZITHROMAX INJ 500 MG VIAL 250 MG in NS 250 ML IV 250 ML IV SCH (10:19)
[2020-02-27] MEDS: ZOSYN VIAL 3.375 GRAMS 3.375 G in NS 100 ML IV + SPIKE MINIBAG* 100 ML IV SCH ×3 (14:15→21:24)
[2020-02-27 14:51] LABS: ABG BASE EXCESS 5.3 mmol/L (-2.0-2.0); ABG HCO3 29.9 mmol/L (22-26)
--- NOTE | 2020-02-27 14:51 | RAD ---
HISTORYCOVID-19, DEHYDRATIONSTUDYPortable AP chestCOMPARISONJune 2019FINDINGSThe heart size is normal. There are increased diffuse interstitial lung markings with suggestion of some interstitial edema and septal Linda B-lines. There is no obvious effusion. There is mild vascular congestion.IMPRESSIONMild vascular congestion and interstitial edema as before.Electronically signed by: ANDREA GENAO (Feb 27, 2020 14:50:09)
[2020-02-27] MEDS: FIORICET TAB PO PRN (17:39)
[2020-02-27] MEDS: LASIX IVP SCH (18:16)
[2020-02-27] MEDS: KLONOPIN TAB 0.5 MG PO SCH (20:47)
[2020-02-27 20:59] LABS: BILIRUBIN,URINE NEGATIVE (NEGATIVE); BLOOD/HEMOGLOBIN,URINE 1+ (NEGATIVE); GLUCOSE, URINE NEGATIVE (NEGATIVE); KETONES,URINE NEGATIVE (NEGATIVE); LEUKOCYTE ESTERASE ,URINE NEGATIVE (NEGATIVE); NITRITES,URINE NEGATIVE (NEGATIVE); PROTEIN,URINE 2+ (NEGATIVE); UROBILINOGEN,URINE NORMAL (NORMAL)
[2020-02-27 21:06] LABS: APPEARANCE,URINE CLEAR (CLEAR); BACTERIA,URINE TRACE /HPF (NEGATIVE); COLOR,URINE YELLOW (YELLOW); RBC,URINE 0-2 /HPF (0-3); SQUAMOUS EPITHELIAL CELL,UR RARE /HPF (NEGATIVE)
[2020-02-28] MEDS: NORCO 10/325 TAB PO PRN ×4 (03:14→21:33)
[2020-02-28] MEDS: ZOFRAN INJ 4 MG VIAL IVP PRN (03:15)
[2020-02-28] MEDS: NS 1000 ML 1,000 ML IV SCH ×3 (05:06→21:31)
[2020-02-28 05:33] LABS: BASOPHILS % (AUTO) 0.1 % (0.2-1.0); HEMATOCRIT 45.2 % (42.0-54.0); LYMPHOCYTES # (AUTO) 0.4 X10^3/uL (1.3-2.9); LYMPHOCYTES % (AUTO) 18.7 % (21.0-51.0); MEAN CORPUSCULAR HEMOGLOBIN 32.8 pg (27.0-34.0); MEAN CORPUSCULAR HGB CONC 35.3 g/dL (33.0-35.0); MEAN CORPUSCULAR VOLUME 93.1 fL (80.0-100.0); MEAN PLATELET VOLUME 8.7 fL (7.4-11.0); MONOCYTES # (AUTO) 0.3 x10^3/uL (0.3-0.8); MONOCYTES % (AUTO) 12.1 % (0.0-13.0); NEUTROPHILS # (AUTO) 1.6 x10^3/uL (2.2-4.8); NEUTROPHILS % (AUTO) 69.1 % (42.0-75.0); PLATELET COUNT 92 X10^3/uL (150.0-450.0); RED BLOOD COUNT 4.86 X10^6/uL (4.7-6.0); RED CELL DISTRIBUTION WIDTH 12.7 % (11.6-16.5); WHITE BLOOD COUNT 2.4 X10^3/uL (3.6-10.0)
[2020-02-28 05:47] LABS: ALANINE AMINOTRANSFERASE 93 Units/L (12-78); ALBUMIN 3.1 g/dL (3.4-5.0); ALKALINE PHOSPHATASE 79 Units/L (46-116); ASPARTATE AMINO TRANSFERASE 69 Units/L (15-37); BLOOD UREA NITROGEN 20 mg/dL (7-18); CALCIUM 8.6 mg/dL (8.5-10.1); CARBON DIOXIDE 29.1 mmol/L (21-32); CHLORIDE 100 mmol/L (98-107); COR CA(FOR HYPOALB) 9.3 mg/dL (8.5-10.1); COR NA(FOR HYPERGLY) 136 mmol/L (136-145); CREATININE 1.13 mg/dL (0.70-1.30); SODIUM 136 mmol/L (136-145); TOTAL PROTEIN 7.1 g/dL (6.4-8.2); eGFR NON BLACK RACES > 60 (>60)
[2020-02-28 05:54] LABS: ABG BASE EXCESS 4.7 mmol/L (-2.0-2.0); ABG HCO3 29.2 mmol/L (22-26)
[2020-02-28] MEDS: ZOSYN VIAL 3.375 GRAMS 3.375 G in NS 100 ML IV + SPIKE MINIBAG* 100 ML IV SCH ×3 (05:54→21:32)
[2020-02-28 06:10] LABS: BAND NEUTROPHILS % 3 % (0-10); PLATELET MORPHOLOGY COMMENT NORMAL (NORMAL)
--- NOTE | 2020-02-28 06:20 | RAD ---
HISTORYPneumonia, COVID-19STUDYCHEST, 1 [id number]/10/2020FINDINGSThe heart is upper limits normal in size. The cristy are normal. No definite congestive heart failure is present on today's examination. Subtle right lower lobe perihilar infiltrate is present on the right. The left lung appears clear. No pleural effusions are identified. Bony thorax is unremarkable.IMPRESSIONSubtle right lower lobe perihilar infiltrate now visualizedElectronically signed by: KAYLYN MERCADO (Feb 28, 2020 06:19:39)
[2020-02-28] MEDS ORDERED: MICRO K EXTEN CAP 10 MEQ PO PRN (07:52)
[2020-02-28] MEDS ORDERED: POTASSIUM CHLORIDE LIQ 20 MEQ UDC PO PRN (07:52)
[2020-02-28] MEDS ORDERED: POTASSIUM CHL 60 MEQ/NS 0.45% 500 ML IV PRN (07:52)
[2020-02-28] MEDS ORDERED: POTASSIUM CHL 40 MEQ/NS 0.45% 500 ML IV PRN (07:52)
[2020-02-28] MEDS ORDERED: KLOR-CON PO PRN (07:52)
[2020-02-28] MEDS ORDERED: K-RIDER 10 MEQ/NS 100 ML 10 MEQ/100 ML BAG IV PRN (07:52)
[2020-02-28] MEDS: PROTONIX INJ 40 MG VIAL IVP SCH (08:29)
[2020-02-28] MEDS: PEPCID TAB 20 MG PO SCH ×2 (08:30→21:32)
[2020-02-28] MEDS: BENTYL CAP 10 MG PO SCH ×4 (08:30→21:32)
[2020-02-28] MEDS: PHENERGAN INJ 25 MG IM PRN (08:30)
[2020-02-28] MEDS: FIORICET TAB PO PRN (08:31)
[2020-02-28] MEDS: COZAAR PO SCH (08:32)
[2020-02-28] MEDS: LASIX IVP SCH (08:33)
[2020-02-28] MEDS: ZITHROMAX INJ 500 MG VIAL 250 MG in NS 250 ML IV 250 ML IV SCH (08:34)
[2020-02-28] MEDS: K-DUR TAB 20 MEQ PO PRN (08:59)
[2020-02-28] MEDS: MAGNESIUM SULFATE 1 GRAM/100 mL PREMIX 1 GM/100 ML BAG IV PRN ×2 (09:00→10:00)
[2020-02-28] MEDS: NEURONTIN TAB 600 MG PO PRN (14:45)
[2020-02-28] MEDS: KLONOPIN TAB 0.5 MG PO SCH (21:32)
[2020-02-28] MEDS: FLEXERIL TAB 10 MG PO PRN (23:51)
[2020-02-29] MEDS: ZOSYN VIAL 3.375 GRAMS 3.375 G in NS 100 ML IV + SPIKE MINIBAG* 100 ML IV SCH ×3 (05:17→21:01)
[2020-02-29] MEDS: NORCO 10/325 TAB PO PRN ×3 (05:23→21:02)
[2020-02-29 05:47] LABS: BASOPHILS % (AUTO) 0.4 % (0.2-1.0); EOSINOPHILS % (AUTO) 0.1 % (0.9-2.9); HEMATOCRIT 45.6 % (42.0-54.0); HEMOGLOBIN 16.2 g/dL (13.5-18.0); LYMPHOCYTES # (AUTO) 0.6 X10^3/uL (1.3-2.9); LYMPHOCYTES % (AUTO) 20.4 % (21.0-51.0); MEAN CORPUSCULAR HEMOGLOBIN 32.8 pg (27.0-34.0); MEAN CORPUSCULAR HGB CONC 35.5 g/dL (33.0-35.0); MEAN CORPUSCULAR VOLUME 92.3 fL (80.0-100.0); MEAN PLATELET VOLUME 7.9 fL (7.4-11.0); MONOCYTES # (AUTO) 0.2 x10^3/uL (0.3-0.8); MONOCYTES % (AUTO) 9.2 % (0.0-13.0); NEUTROPHILS # (AUTO) 1.9 x10^3/uL (2.2-4.8); NEUTROPHILS % (AUTO) 69.9 % (42.0-75.0); PLATELET COUNT 98 X10^3/uL (150.0-450.0); RED BLOOD COUNT 4.94 X10^6/uL (4.7-6.0); WHITE BLOOD COUNT 2.7 X10^3/uL (3.6-10.0)
[2020-02-29 05:58] LABS: ALANINE AMINOTRANSFERASE 80 Units/L (12-78); ALBUMIN 2.9 g/dL (3.4-5.0); ALKALINE PHOSPHATASE 80 Units/L (46-116); ASPARTATE AMINO TRANSFERASE 57 Units/L (15-37); BLOOD UREA NITROGEN 23 mg/dL (7-18); CARBON DIOXIDE 27.9 mmol/L (21-32); CHLORIDE 101 mmol/L (98-107); COR CA(FOR HYPOALB) 8.9 mg/dL (8.5-10.1); CREATININE 1.31 mg/dL (0.70-1.30); SODIUM 137 mmol/L (136-145); TOTAL PROTEIN 6.9 g/dL (6.4-8.2); eGFR NON BLACK RACES > 60 (>60)
[2020-02-29] MEDS ORDERED: CHLORASEPTIC SPRAY MT PRN (08:39)
[2020-02-29] MEDS: ZITHROMAX INJ 500 MG VIAL 250 MG in NS 250 ML IV 250 ML IV SCH (09:04)
[2020-02-29] MEDS: LASIX IVP SCH (09:04)
[2020-02-29] MEDS: PEPCID TAB 20 MG PO SCH ×2 (09:05→20:57)
[2020-02-29] MEDS: COZAAR PO SCH (09:05)
[2020-02-29] MEDS: BENTYL CAP 10 MG PO SCH (09:05)
[2020-02-29] MEDS: PROTONIX INJ 40 MG VIAL IVP SCH (09:06)
[2020-02-29 10:51] LABS: ABG BASE EXCESS 3.2 mmol/L (-2.0-2.0); ABG HCO3 27.9 mmol/L (22-26)
[2020-02-29 10:52] LABS: ABG ALLEN TEST POS
[2020-02-29 11:41] LABS: ABG BASE EXCESS 4.1 mmol/L (-2.0-2.0); ABG HCO3 28.5 mmol/L (22-26)
[2020-02-29 11:42] LABS: ABG ALLEN TEST POS
--- NOTE | 2020-02-29 12:10 | RAD ---
HISTORYDECREASED OXYGEN, COVID-19 POSITIVESTUDYPortable AP chestCOMPARISONJune 2019FINDINGSThere are increased interstitial lung markings and minimal vascular congestion. A mild peripheral right lower lobe infiltrate is suggested, nodular in configuration. There is no effusion.IMPRESSIONNo significant change of interstitial nodular lung disease and small peripheral infiltrates primarily in the right lower lobe.Electronically signed by: ANDREA GENAO (Feb 29, 2020 12:08:45)
[2020-02-29] MEDS ORDERED: BENTYL CAP 10 MG PO PRN (13:15)
[2020-02-29] MEDS ORDERED: REMDESIVIR (INVESTIGATIONAL DRUG GS-5734) 200 MG in NS 250 ML IV 250 ML IV NR (13:30)
--- NOTE | 2020-02-29 13:47 | DR.H&P ---
H&P - History & Physical for Day of: H&P Date: 02/29/20 - Chief Complaint Chief Complaint: Mr. Concepcion is a 54-year-old white male who was an ER admission with intractable nausea and vomiting, abdominal pain, positive COVID- 19, as well as pneumonia. Pt is currently on Zosyn, as well as Zithromax. He had a CTA on admission showing bilateral ground glass opacities consistent with patients COVID-19 positive status. He did report that he is having some sputum production today and a cough. Pt chest xray results on peripheral right lower lobe infiltrate is suggested. Pt has been on Lasix IV daily without effusion on xray. Pt co increased fatigue today, continues with diarrhea but improving nausea. The patient reports that he does feel better. He did have a low-grade fever during the night last night around 99.4. Pt has increased CRP and SED rate this am. Pt decreased PO2 46 on room air, pt sating 85% on room air. Pt started on remdesivir - Past Medical History Past Medical History: Hypertension - Past Surgical History Surgical History: Ortho Surgery - Family History Family Medical History: Cancer - Social History Does patient currently use any type of tobacco product: No Have you used tobacco products in the last 12 months: No Type of Tobacco Use: None Does any household member use tobacco: No Alcohol Use: None - Medications Home Medications: No Known Drug Allergies Allergy (Verified 02/24/20 01:47) CONTINUE taking the following medications clonazepam 0.5 mg PO HS 02/24/20 [History] cyclobenzaprine 10 mg PO Q8H PRN 02/24/20 [History] diclofenac sodium 25 mg PO DAILY 02/24/20 [History] fluticasone propionate 1 spray INTRANASAL BID 02/24/20 [History] gabapentin 1,200 mg PO BID 02/24/20 [History] hydrocodone-acetaminophen 1 tab PO Q6H PRN 02/24/20 [History] losartan 100 mg PO DAILY 02/24/20 [History] meclizine 25 mg PO Q8H PRN 02/24/20 [History] - Physical Exam Vital Signs: Temperature 99.3 F Pulse Rate [Right Brachial] 92 Pulse Rate 92 Respiratory Rate 20 Blood Pressure [Right Arm] 115/62 Blood Pressure 116/75 O2 Sat by Pulse Oximetry 86 Oriented: Normal - Allergies Allergies/Adverse Reactions: Allergies Allergy/AdvReac Type Severity Reaction Status Date / Time No Known Drug Allergies Allergy Verified 02/24/20 01:47
[2020-02-29] MEDS: ROBITUSSIN DM PO SCH ×3 (14:00→20:57)
[2020-02-29] MEDS ORDERED: ZINC SULFATE PO SCH (14:00)
--- NOTE | 2020-02-29 14:18 | PCM.PROG ---
Progress Note - Progress Note for Day of Date of Exam: 02/29/20 - Subjective Subjective: Mr. Concepcion is a 54-year-old white male who was an ER admission with intractable nausea and vomiting, abdominal pain, positive COVID-19, as well as pneumonia. Pt is currently on Zosyn, as well as Zithromax. He had a CTA on admission showing bilateral ground glass opacities consistent with patients COVID-19 positive status. He did report that he is having some sputum production today and a cough. Pt chest xray results on peripheral right lower lobe infiltrate is suggested. Pt has been on Lasix IV daily without effusion on xray. Pt co increased fatigue today, continues with diarrhea but improving nausea. The patient reports that he does feel better. He did have a low-grade fever during the night last night around 99.4. Pt has increased CRP and SED rate this am. Pt decreased PO2 46 on room air, pt sating 85% on room air. Pt started on remdesivir today. - Past Medical Family Social History Past Med/Fam/Surg Hx: No changes since H&P Allergies: Allergies No Known Drug Allergies Allergy (Verified 02/24/20 01:47) - Review of Systems ROS: No change since H&P - Vital Signs and I&O's Vital Signs: Temperature 99.3 F Pulse Rate [Right Brachial] 92 Pulse Rate 92 Respiratory Rate 20 Blood Pressure [Right Arm] 115/62 Blood Pressure 116/75 O2 Sat by Pulse Oximetry 86 Intake and Output: Intake & Output 02/27/20 02/28/20 02/29/20 03/01/20 11:59 11:59 11:59 11:59 Intake Total 2590 / 2590 1893 / 1893 1764 / 1764 Output Total 1950 / 1950 1400 / 1400 1200 / 1200 Balance 640 / 640 493 / 493 564 / 564 - Physical Exam Oriented: Normal Eyes: Normal Ear: Normal Nose: Normal Throat: Red Respiratory: Diminished, Rhonchi Cardiovascular: Normal : Normal Auscultation: Bowel Sounds: Normal Tenderness: Normal Skin: Normal Musculoskeletal: Normal Psychiatric: Normal Speech Pattern: Clear, Appropriate - Laboratory and Diagnostics Result Diagrams: 02/29/20 04:25 02/29/20 04:25 Labs: 02/27/20 14:38 Sputum - Expectorated Sputum Sputum Culture - Final 02/27/20 14:38 Sputum - Expectorated Sputum - Final 02/27/20 20:40 Urine,Clean Catch Urine Culture - Final 02/27/20 16:05 Blood Blood Culture - Preliminary 02/27/20 15:55 Blood Blood Culture - Preliminary Laboratory WBC 2.7 X10^3/uL (3.6-10.0) L 02/29/20 04:25 RBC 4.94 X10^6/uL (4.7-6.0) 02/29/20 04:25 Hgb 16.2 g/dL (13.5-18.0) 02/29/20 04:25 Hct 45.6 % (42.0-54.0) 02/29/20 04:25 MCV 92.3 fL (80.0-100.0) 02/29/20 04:25 MCH 32.8 pg (27.0-34.0) 02/29/20 04:25 MCHC 35.5 g/dL (33.0-35.0) H 02/29/20 04:25 RDW 13.0 % (11.6-16.5) 02/29/20 04:25 Plt Count 98 X10^3/uL (150.0-450.0) L 02/29/20 04:25 Plt Count Comment Decreased (ADEQUATE) 02/28/20 05:11 MPV 7.9 fL (7.4-11.0) 02/29/20 04:25 Neut % (Auto) 69.9 % (42.0-75.0) 02/29/20 04:25 Lymph % (Auto) 20.4 % (21.0-51.0) L 02/29/20 04:25 [place] % (Auto) 9.2 % (0.0-13.0) 02/29/20 04:25 Eos % (Auto) 0.1 % (0.9-2.9) L 02/29/20 04:25 Baso % (Auto) 0.4 % (0.2-1.0) 02/29/20 04:25 Neut # (Auto) 1.9 x10^3/uL (2.2-4.8) L 02/29/20 04:25 Lymph # (Auto) 0.6 X10^3/uL (1.3-2.9) L 02/29/20 04:25 [place] # (Auto) 0.2 x10^3/uL (0.3-0.8) L 02/29/20 04:25 Eos # (Auto) 0.0 x10^3/uL (0.0-0.2) 02/29/20 04:25 Baso # (Auto) 0.0 X10^3/uL (0.0-0.1) 02/29/20 04:25 Absolute Nucleated RBC 1.1 /100WBC 02/29/20 04:25 Total Counted 100 02/28/20 05:11 Neutrophils % (Manual) 74 % (39-76) 02/28/20 05:11 Band Neutrophils % 3 % (0-10) 02/28/20 05:11 Lymphocytes % (Manual) 15 % (13-43) 02/28/20 05:11 Monocytes % (Manual) 8 % (4-9) 02/28/20 05:11 Eosinophils % (Manual) 4 % (0-6) 02/27/20 04:24 Plt Morphology Comment Normal (NORMAL) 02/28/20 05:11 RBC Morphology Normal (NORMAL) 02/28/20 05:11 ESR 48 MM/HOUR (0-15) H 02/29/20 04:45 PT 12.5 SECONDS (11.8-14.3) 02/24/20 02:30 INR Target Range - 02/24/20 02:30 INR 0.96 (0.8-1.3) 02/24/20 02:30 APTT 37.2 SECONDS (22.9-36.5) H 02/24/20 02:30 PTT Comment - 02/24/20 02:30 D-Dimer 274 ng/mL (0-400) 02/27/20 15:55 Sample Site Lra 02/29/20 11:37 ABG pH 7.450 (7.35-7.45) 02/29/20 11:37 ABG pCO2 41.0 mmHg (35.0-45.0) 02/29/20 11:37 ABG pO2 46.0 mmHg (80.0-100.0) L* 02/29/20 11:37 ABG HCO3 28.5 mmol/L (22-26) H 02/29/20 11:37 ABG O2 Saturation 84.0 % (90-100) L* 02/29/20 11:37 ABG Base Excess 4.1 mmol/L (-2.0-2.0) H 02/29/20 11:37 Jorge Test Pos 02/29/20 11:37 A-a Gradient 52.0 mmHg 02/29/20 11:37 FiO2 21.0 02/29/20 11:37 Blood Gas Comments Pt jerome well eb 02/29/20 11:37 Sodium 137 mmol/L (136-145) 02/29/20 04:25 Corrected Sodium TNP 02/29/20 04:25 Potassium 3.6 mmol/L (3.5-5.1) 02/29/20 04:25 Chloride 101 mmol/L (98-107) 02/29/20 04:25 Carbon Dioxide 27.9 mmol/L (21-32) 02/29/20 04:25 BUN 23 mg/dL (7-18) H 02/29/20 04:25 Creatinine 1.31 mg/dL (0.70-1.30) H 02/29/20 04:25 Est GFR (MDRD) Af Amer > 60 (>60) 02/29/20 04:25 Est GFR (MDRD) Non-Af > 60 (>60) 02/29/20 04:25 Glucose 110 mg/dL (65-99) H 02/29/20 04:25 Lactic Acid 1.0 mmol/L (0.4-2.0) 02/27/20 15:55 Calcium 8.0 mg/dL (8.5-10.1) L 02/29/20 04:25 Corrected Calcium 8.9 mg/dL (8.5-10.1) 02/29/20 04:25 Magnesium 3.2 mg/dL (1.7-2.9) H 02/29/20 04:25 Total Bilirubin 0.90 mg/dL (0.2-1.0) 02/29/20 04:25 AST 57 Units/L (15-37) H 02/29/20 04:25 ALT 80 Units/L (12-78) H 02/29/20 04:25 Alkaline Phosphatase 80 Units/L (46-116) 02/29/20 04:25 Creatine Kinase 220 Units/L (39-308) 02/24/20 02:30 CK-MB (CK-2) < 1.0 ng/mL (0-4.0) 02/24/20 02:30 CK/CKMB % Calc 0.5 % (<4) 02/24/20 02:30 Troponin I < 0.02 ng/mL (0-1.5) 02/24/20 02:30 C-Reactive Protein 23.70 mg/L (0-3.0) H 02/29/20 04:45 Total Protein 6.9 g/dL (6.4-8.2) 02/29/20 04:25 Albumin 2.9 g/dL (3.4-5.0) L 02/29/20 04:25 Globulin 4.0 g/dL (2.5-4.5) 02/29/20 04:25 Albumin/Globulin Ratio 0.7 Ratio (1.1-2.1) L 02/29/20 04:25 Amylase 36 Units/L (25-115) 02/24/20 02:30 Lipase 97 Units/L (73-393) 02/24/20 02:30 Specimen Type Clean catch urine 02/27/20 20:40 Urine Color Yellow (YELLOW) 02/27/20 20:40 Urine Appearance Clear (CLEAR) 02/27/20 20:40 Urine pH 7.0 (5.0 - 8.0) 02/27/20 20:40 Ur Specific [place] 1.010 (1.000-1.030) 02/27/20 20:40 Urine Protein 2+ (NEGATIVE) 02/27/20 20:40 Urine Glucose (UA) Negative (NEGATIVE) 02/27/20 20:40 Urine Ketones Negative (NEGATIVE) 02/27/20 20:40 Urine Occult Blood 1+ (NEGATIVE) 02/27/20 20:40 Urine Nitrite Negative (NEGATIVE) 02/27/20 20:40 Urine Bilirubin Negative (NEGATIVE) 02/27/20 20:40 Urine Urobilinogen Normal (NORMAL) 02/27/20 20:40 Ur Leukocyte Esterase Negative (NEGATIVE) 02/27/20 20:40 Urine RBC 0-2 /HPF (0-3) 02/27/20 20:40 Urine WBC 0-2 /HPF (0-5) 02/27/20 20:40 Ur Squamous Epith Cells Rare /HPF (NEGATIVE) 02/27/20 20:40 Urine Bacteria Trace /HPF (NEGATIVE) 02/27/20 20:40 Urine Mucus Few /HPF (NEGATIVE) 02/24/20 03:51 Ur Culture Indicated? No/not indicated 02/27/20 20:40 Stool Description 72g,brown,unformed 02/27/20 20:40 Stl Occult Blood (IFOB) Negative (NEGATIVE) 02/27/20 20:40 Urine Opiates Screen Positive (NEG=<300) 02/24/20 03:51 Urine Methadone Screen Negative (NEG=<300) 02/24/20 03:51 Ur Barbiturates Screen Negative (NEG=<200) 02/24/20 03:51 Ur Phencyclidine Scrn Negative (NEG=<25) 02/24/20 03:51 Ur Amphetamines Screen Negative (NEG=<1000) 02/24/20 03:51 U Benzodiazepines Scrn Negative (NEG=<200) 02/24/20 03:51 Urine Cocaine Screen Negative (NEG=<300) 02/24/20 03:51 U Marijuana (THC) Screen Negative (NEG=<50) 02/24/20 03:51 SARS-CoV-2 (PCR) Positive (NEGATIVE) A 02/24/20 04:35 S. pyogenes (TEM-PCR) Not detected (NOT DETECT) 02/24/20 02:36 - Plan (1) COVID-19 virus infection Status: Acute Plan: BLOOD AND SPUTUM CULTURE OBTAINED. SUPPLEMENTAL O2, AGGRESSIVE RESPIRATORY THERAPY. IV HYDRATION, STRICT I& OS. IV ZITHROMAX, ZOSYN, IV REMDESIVIR. REPEAT AM ABG, AM LABS INCLUDING CRP AND SED RATE. AM CHEST XRAY (2) Pneumonia Status: Acute (3) Hypertension Status: Acute (4) Thrombocytopenia Status: Acute Plan: Plt 73, likely d/t underlying infection. Will use SCDs
[2020-02-29] MEDS ORDERED: ASCORBIC ACID INJ MULTI-DOSE VIAL IM SCH (16:45)
[2020-02-29] MEDS: LOVENOX INJ 40 MG SYR SC SCH (17:40)
[2020-02-29] MEDS: VITAMIN D (1.25MG) PO SCH (18:48)
[2020-02-29] MEDS: THIAMINE HCL INJ IM SCH ×2 (18:50→21:01)
[2020-02-29] MEDS: CORTEF PO SCH ×2 (18:53→20:28)
[2020-02-29] MEDS: VITAMIN A PO SCH (18:54)
[2020-02-29] MEDS: PLAQUENIL PO SCH ×2 (18:56→20:28)
[2020-02-29] MEDS: NS 100 ML IV 100 ML IV SCH (19:55)
[2020-02-29] MEDS: ASCORBIC ACID INJ MULTI-DOSE VIAL IV SCH (19:55)
[2020-02-29] MEDS: KLONOPIN TAB 0.5 MG PO SCH (20:57)
[2020-02-29] MEDS: ZINC SULFATE PO SCH (20:57)
[2020-03-01] MEDS: ASCORBIC ACID INJ MULTI-DOSE VIAL IV SCH ×4 (00:56→19:30)
[2020-03-01] MEDS: NS 100 ML IV 100 ML IV SCH ×4 (01:22→19:00)
[2020-03-01] MEDS: ZOFRAN INJ 4 MG VIAL IVP PRN ×2 (05:00→20:42)
[2020-03-01 05:10] LABS: ABG ALLEN TEST POS; ABG BASE EXCESS 4.9 mmol/L (-2.0-2.0); ABG HCO3 29.2 mmol/L (22-26)
[2020-03-01] MEDS: ZOSYN VIAL 3.375 GRAMS 3.375 G in NS 100 ML IV + SPIKE MINIBAG* 100 ML IV SCH ×3 (05:23→22:13)
[2020-03-01] MEDS: NORCO 10/325 TAB PO PRN ×4 (05:23→22:12)
[2020-03-01 05:41] LABS: BASOPHILS % (AUTO) 0.1 % (0.2-1.0); EOSINOPHILS % (AUTO) 0.3 % (0.9-2.9); HEMATOCRIT 41.7 % (42.0-54.0); HEMOGLOBIN 14.9 g/dL (13.5-18.0); LYMPHOCYTES # (AUTO) 0.9 X10^3/uL (1.3-2.9); LYMPHOCYTES % (AUTO) 33.2 % (21.0-51.0); MEAN CORPUSCULAR HEMOGLOBIN 32.9 pg (27.0-34.0); MEAN CORPUSCULAR HGB CONC 35.6 g/dL (33.0-35.0); MEAN CORPUSCULAR VOLUME 92.5 fL (80.0-100.0); MEAN PLATELET VOLUME 8.2 fL (7.4-11.0); MONOCYTES # (AUTO) 0.4 x10^3/uL (0.3-0.8); MONOCYTES % (AUTO) 15.8 % (0.0-13.0); NEUTROPHILS # (AUTO) 1.3 x10^3/uL (2.2-4.8); NEUTROPHILS % (AUTO) 50.6 % (42.0-75.0); PLATELET COUNT 117 X10^3/uL (150.0-450.0); RED BLOOD COUNT 4.51 X10^6/uL (4.7-6.0); RED CELL DISTRIBUTION WIDTH 12.9 % (11.6-16.5); WHITE BLOOD COUNT 2.6 X10^3/uL (3.6-10.0)
[2020-03-01 06:09] LABS: ALANINE AMINOTRANSFERASE 70 Units/L (12-78); ALBUMIN 2.7 g/dL (3.4-5.0); ALKALINE PHOSPHATASE 74 Units/L (46-116); ASPARTATE AMINO TRANSFERASE 48 Units/L (15-37); BLOOD UREA NITROGEN 23 mg/dL (7-18); CALCIUM 8.2 mg/dL (8.5-10.1); CHLORIDE 103 mmol/L (98-107); COR CA(FOR HYPOALB) 9.2 mg/dL (8.5-10.1); CREATININE 1.14 mg/dL (0.70-1.30); SODIUM 139 mmol/L (136-145); TOTAL PROTEIN 6.5 g/dL (6.4-8.2); eGFR NON BLACK RACES > 60 (>60)
[2020-03-01] MEDS: NS 1000 ML 1,000 ML IV SCH ×3 (06:25→21:13)
[2020-03-01] MEDS: COZAAR PO SCH (08:50)
[2020-03-01] MEDS: PEPCID TAB 20 MG PO SCH ×2 (08:50→20:43)
[2020-03-01] MEDS: ROBITUSSIN DM PO SCH ×4 (08:50→20:43)
[2020-03-01] MEDS: VITAMIN D (1.25MG) PO SCH (08:50)
[2020-03-01] MEDS: VSL#3 PO SCH (08:50)
[2020-03-01] MEDS: REMDESIVIR (INVESTIGATIONAL DRUG GS-5734) 100 MG in NS 250 ML IV 250 ML IV SCH (09:00)
[2020-03-01] MEDS: CORTEF PO SCH ×4 (10:00→20:44)
[2020-03-01] MEDS: ZINC SULFATE PO SCH ×2 (13:52→20:42)
[2020-03-01] MEDS: VITAMIN A PO SCH (13:53)
[2020-03-01] MEDS: PLAQUENIL PO SCH ×2 (13:54→20:43)
[2020-03-01] MEDS: PROTONIX INJ 40 MG VIAL IVP SCH (13:54)
[2020-03-01] MEDS: LOVENOX INJ 40 MG SYR SC SCH (13:55)
[2020-03-01] MEDS: THIAMINE HCL INJ IVP SCH (20:42)
[2020-03-01] MEDS: KLONOPIN TAB 0.5 MG PO SCH (20:44)
[2020-03-01] MEDS: VENTOLIN or PROAIR HFA IN PRN (20:50)
[2020-03-02] MEDS: ASCORBIC ACID INJ MULTI-DOSE VIAL IV SCH ×2 (00:04→07:25)
[2020-03-02] MEDS: NS 100 ML IV 100 ML IV SCH ×2 (00:05→07:26)
[2020-03-02] MEDS: ZOSYN VIAL 3.375 GRAMS 3.375 G in NS 100 ML IV + SPIKE MINIBAG* 100 ML IV SCH (05:01)
--- NOTE | 2020-03-02 05:23 | RAD ---
Chest AP portableIndication neutropenia with burk virus infectionComparison February 29, 2020FINDINGSThere is no pneumothorax. Heart size is prominent with peribronchial thickening and patchy somewhat peripheral pulmonary opacities, similar to February 29, 2020 radiograph.IMPRESSIONPatchy pulmonary opacities suggesting burk virus infection, as on the prior.Electronically signed by: SANDRA HURD (Mar 02, 2020 05:22:16)
[2020-03-02 05:25] LABS: BASOPHILS % (AUTO) 0.2 % (0.2-1.0); EOSINOPHILS % (AUTO) 0.5 % (0.9-2.9); HEMATOCRIT 39.4 % (42.0-54.0); HEMOGLOBIN 13.9 g/dL (13.5-18.0); LYMPHOCYTES # (AUTO) 0.8 X10^3/uL (1.3-2.9); LYMPHOCYTES % (AUTO) 26.8 % (21.0-51.0); MEAN CORPUSCULAR HEMOGLOBIN 32.6 pg (27.0-34.0); MEAN CORPUSCULAR HGB CONC 35.3 g/dL (33.0-35.0); MEAN CORPUSCULAR VOLUME 92.5 fL (80.0-100.0); MONOCYTES # (AUTO) 0.4 x10^3/uL (0.3-0.8); MONOCYTES % (AUTO) 11.3 % (0.0-13.0); NEUTROPHILS # (AUTO) 1.9 x10^3/uL (2.2-4.8); NEUTROPHILS % (AUTO) 61.2 % (42.0-75.0); PLATELET COUNT 131 X10^3/uL (150.0-450.0); RED BLOOD COUNT 4.26 X10^6/uL (4.7-6.0); RED CELL DISTRIBUTION WIDTH 12.7 % (11.6-16.5); WHITE BLOOD COUNT 3.1 X10^3/uL (3.6-10.0)
[2020-03-02 05:39] LABS: ALANINE AMINOTRANSFERASE 56 Units/L (12-78); ALBUMIN 2.6 g/dL (3.4-5.0); ALKALINE PHOSPHATASE 71 Units/L (46-116); ASPARTATE AMINO TRANSFERASE 39 Units/L (15-37); BLOOD UREA NITROGEN 18 mg/dL (7-18); CALCIUM 8.1 mg/dL (8.5-10.1); CARBON DIOXIDE 27.9 mmol/L (21-32); CHLORIDE 104 mmol/L (98-107); COR CA(FOR HYPOALB) 9.2 mg/dL (8.5-10.1); CREATININE 1.11 mg/dL (0.70-1.30); SODIUM 140 mmol/L (136-145); TOTAL PROTEIN 6.3 g/dL (6.4-8.2); eGFR NON BLACK RACES > 60 (>60)
[2020-03-02] MEDS: NORCO 10/325 TAB PO PRN (05:50)
[2020-03-02 08:27] VITALS: BP 122/60
[2020-03-02] MEDS: CORTEF PO SCH (08:57)
[2020-03-02] MEDS: LOVENOX INJ 40 MG SYR SC SCH (08:58)
[2020-03-02] MEDS: COZAAR PO SCH (08:58)
[2020-03-02] MEDS: PLAQUENIL PO SCH (08:59)
[2020-03-02] MEDS: PROTONIX INJ 40 MG VIAL IVP SCH (08:59)
[2020-03-02] MEDS: PEPCID TAB 20 MG PO SCH (08:59)
[2020-03-02] MEDS ORDERED: VITAMIN D3 25 mcg (1,000 UNITS) PO SCH (09:00)
[2020-03-02] MEDS ORDERED: VITAMIN A PO SCH (09:00)
[2020-03-02] MEDS: THIAMINE HCL INJ IVP SCH (09:00)
[2020-03-02] MEDS: ROBITUSSIN DM PO SCH (09:00)
[2020-03-02] MEDS: REMDESIVIR (INVESTIGATIONAL DRUG GS-5734) 100 MG in NS 250 ML IV 250 ML IV SCH (09:00)
[2020-03-02] MEDS: VSL#3 PO SCH (09:03)
[2020-03-02] MEDS: ZINC SULFATE PO SCH (09:03)
[2020-03-02] MEDS: K-DUR TAB 20 MEQ PO PRN (09:04)
[2020-03-02] MEDS: NEURONTIN TAB 600 MG PO PRN (09:06)
== END 2020-03-02 12:10 | disposition home or self-care (01) | DRG 177 ==
LOC: ER 01:39 → ICU 06:03
PROVIDERS: ADMIT Internal Medicine; ATTEND Internal Medicine
DX: K21.9 Gastro-esophageal reflux disease without esophagitis; D69.6 Thrombocytopenia, unspecified; R51 Headache; R07.9 Chest pain, unspecified; R10.9 Unspecified abdominal pain; E86.0 Dehydration; R79.1 Abnormal coagulation profile; R82.998 Other abnormal findings in urine; M79.605 Pain in left leg; J12.89 Other viral pneumonia; U07.1 COVID-19; M54.89 Other dorsalgia; D70.9 Neutropenia, unspecified; D72.819 Decreased white blood cell count, unspecified; M79.604 Pain in right leg; I10 Essential (primary) hypertension
CPT/HCPCS: 36415; 36600; 71010; 71045; 71275; 74176; 80053; 80307; 81001; 82150; 82270; 82550; 82553; 82803; 83605; 83690; 83735; 84484; 85025; 85378; 85610; 85652; 85730; 86140; 87040; 87070; 87086; 87205; 87635; 87651; 93005; 93306; 94640; 96365; 96367; 96374; 96375; 99284; A4222; C9113; J0456; J0696; J1650; J1885; J1940; J2270; J2405; J2543; J2550; J3411; J3475; J7030; J7050